=== PATIENT | female | born 1975 | race Caucasian/White ===

== ENCOUNTER 2021-03-28 08:03 | Day surgery (SDC) | payer BC ==
[2021-03-05 11:50] VITALS: BMI 29.9
--- NOTE | 2021-03-28 05:51 | P.HPOB ---
History of Present Illness H&P Date: 03/28/21 Chief Complaint: menorrhagia with anemia 45 year old presents for D&C hysteroscopy and endometrial ablation. Review of Systems All systems: negative Constitutional: Denies chills, Denies fever Eyes: denies blurred vision, denies pain Ears, nose, mouth and throat: Denies headache, Denies sore throat Cardiovascular: Denies chest pain, Denies shortness of breath Respiratory: Denies cough Gastrointestinal: Denies abdominal pain, Denies diarrhea, Denies nausea, Denies vomiting Genitourinary: Denies dysuria, Denies hematuria Musculoskeletal: Denies myalgias Integumentary: Denies pruritus, Denies rash Neurological: Denies numbness, Denies weakness Psychiatric: Denies anxiety, Denies depression Endocrine: Denies fatigue, Denies weight change Past Medical History Additional Past Medical History / Comment(s): Heavy frequent periods. 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 Past Anesthesia/Blood Transfusion Reactions: No Reported Reaction Past Psychological History: ADD/ADHD Smoking Status: Current some day smoker Past Alcohol Use History: Occasional Additional Past Alcohol Use History / Comment(s): Occasionally smokes when having a cocktail. Past Drug Use History: None Reported - Past Family History Mother Family Medical History: No Reported History Medications and Allergies Home Medications Medication Instructions Recorded Confirmed Type Cetirizine HCl [Zyrtec] 10 mg PO DAILY 03/05/21 03/25/21 History Ibuprofen [Motrin] 200 - 400 mg PO Q6HR PRN 03/05/21 03/25/21 History Methylphenidate HCl [Concerta] 36 mg PO DAILY 03/05/21 03/25/21 History Allergies Allergy/AdvReac Type Severity Reaction Status Date / Time Penicillins Allergy Rash/Hives Verified 03/25/21 14:50 Exam Osteopathic Statement: *. No significant issues noted on an osteopathic structural exam other than those noted in the History and Physical/Consult. Heart: RRR Lungs: CTAB Abdomen: soft, nontender Extremeties: neg cady's Assessment and Plan (1) Menorrhagia Status: Acute Code(s): N92.0 - EXCESSIVE AND FREQUENT MENSTRUATION WITH REGULAR CYCLE SNOMED Code(s): 327816303 (2) Chronic anemia Status: Acute Code(s): D64.9 - ANEMIA, UNSPECIFIED SNOMED Code(s): 505582356 Plan: 1. D&C hysteroscopy and endometrial ablation
[~2021-03-28 08:03] MED LIST: DEXAMETHASONE SOD PHOSPHATE 4 MG/ML 1 ML VIAL IV ONE; HYDROmorphone 0.5 MG/0.5 ML SYRINGE IVP PRN; LACTATED RINGERS 1,000 ML IV SCH; LIDOCAINE 1% (10MG/ML) FOR IV START INTRADERMA PRN; ONDANSETRON 4 MG/2 ML VIAL IVP ONE; Pre Op ABX Message 1 EACH MISC MISCELLANE ONE; SCOPOLAMINE 1.5MG/72HR PATCH TRANSDERM ONE
[2021-03-28] MEDS ORDERED: PROPOFOL 10 MG/ML 20 ML VIAL IV ONE (10:00)
[2021-03-28] MEDS ORDERED: .fentaNYL (PF) 50 MCG/ML AMP ONE (10:00)
[2021-03-28] MEDS ORDERED: MIDAZOLAM 2 MG/2 ML VIAL ONE (10:00)
[2021-03-28] MEDS ORDERED: KETOROLAC 15 MG/ML 1 ML VIAL ONE (10:00)
[2021-03-28] MEDS ORDERED: LIDOCAINE 1% INJ 10MG/ML (20 ML MDV) ONE (10:00)
[2021-03-28 10:50] VITALS: TEMP 97.5
--- NOTE | 2021-03-28 11:39 | P.OP ---
Date of Procedure: 03/28/21 Preoperative Diagnosis: 1. menorrhagia Postoperative Diagnosis: 1. menorrhagia Procedure(s) Performed: D&C, hysteroscopy, endometrial ablation with Adelina Anesthesia: MAC Surgeon: Nallely Cervantes Estimated Blood Loss (ml): 2 IV fluids (ml): 400 Urine output (ml): 25 Pathology: other (Endometrial curettings) Condition: stable Disposition: PACU Operative Findings: Uterus sounded to 9 cm, cervix sounded to 2.5 centimeters making the cavity length 6.5 cm Description of Procedure: Patient is taken the operating room where general anesthesia was obtained without difficulty. She is prepped and draped in normal sterile fashion dorsal lithotomy position, legs placed in candy cane stirrups. Bladder was drained of all urine. Weighted speculum place in vagina the anterior lip the cervix was grasped with single-tooth tenaculum. The cervix that was dilated to #8 Hegar dilator. The uterus sounded to 9 cm and the cervix sounded to 2.5 centers making the cavity length 6.5 cm. Hysteroscopy was then performed and smooth contour of the uterus was noted. The Adelina device was placed into the uterus and the cervical balloon was blown up to make a good seal. Cavity assessment was passed 2 and the device deployed for 120 seconds. The instrument was then removed hysteroscopy again performed adequate ablation noted. Patient tolerated procedure well, sponge and instrument count correct 2. She was taken to recovery in stable condition.
[2021-03-28] MEDS ORDERED: KETOROLAC 15 MG/ML 1 ML VIAL IVP ONE (11:45)
[2021-03-28] MEDS ORDERED: KETOROLAC 30 MG/ML 1 ML VIAL ONE (11:51)
[2021-03-28 12:04] VITALS: BP 164/105; PULSE 64; RESP 18
== END 2021-03-28 12:38 | disposition home or self-care (01) ==
LOC: OR 08:03
PROVIDERS: ATTEND Obstetrics & Gynecology
DX: N92.0 Excessive and frequent menstruation with regular cycle (principal); F17.200 Nicotine dependence, unspecified, uncomplicated; F90.9 Attention-deficit hyperactivity disorder, unspecified type
CPT/HCPCS: 58563; 81025; 88305; J2250; J1100; J2405; J2001; J3010; J1885; J2704